=== PATIENT | male | born 1995 | race Asian ===

== ENCOUNTER 2016-09-01 13:06 | Emergency (ER) | payer OTHER ==
[~2016-09-01] VITALS: Ht 167.6 cm; Wt 84.0 kg
[2016-09-01 13:08] VITALS: BP 124/70; TEMP 98.2
[2016-09-01 14:20] VITALS: PULSE 76
== END 2016-09-01 14:20 | disposition home or self-care (01) ==
LOC: COL.ER 13:06
DX: J06.9 Acute upper respiratory infection, unspecified (principal)